=== PATIENT | female | born 1960 | race Caucasian/White ===

== ENCOUNTER 2021-01-23 11:11 | Emergency (ER) | payer BC ==
[2021-01-23] MEDS ORDERED: Bacitracin Oint 1 GM U/D Packet TOP ONE (11:41)
--- NOTE | 2021-01-23 12:10 | EDM.PDOC ---
ED HPI GENERAL MEDICAL PROBLEM - General Chief Complaint: Laceration Stated Complaint: L POINTER FINGER CUT Time Seen by Provider: 01/23/21 11:35 Source of Information: Reports: Patient History Limitations: Reports: No Limitations - History of Present Illness INITIAL COMMENTS - FREE TEXT/NARRATIVE: 60-year-old female was cutting a bigger frozen hamburger when she accidentally c ut the top of the index finger on the left hand. She has a tangential laceration across the dorsal aspect of the proximal finger. No limitations of motion. Onset: Sudden Duration: Hour(s): (Within the last hour) Location: Reports: Upper Extremity, Left Associated Symptoms: Reports: No Other Symptoms - Related Data Allergies Allergy/AdvReac Type Severity Reaction Status Date / Time No Known Allergies Allergy Verified 01/23/21 11:59 Social & Family History - Tobacco Use Tobacco Use Status *Q: Never Tobacco User Second Hand Smoke Exposure: No ED ROS GENERAL - Review of Systems Review Of Systems: See Below Constitutional: Denies: Fever, Chills Respiratory: Denies: Shortness of Breath Cardiovascular: Denies: Chest Pain GI/Abdominal: Denies: Abdominal Pain, Nausea, Vomiting Neurological: Denies: Paresthesia ED EXAM, SKIN/RASH Exam: See Below Exam Limited By: No Limitations General Appearance: Alert, No Apparent Distress, Anxious Respiratory/Chest: No Respiratory Distress Extremities: Other (Exam is otherwise limited the left hand. Patient is a 3 cm diagonal laceration over the dorsal aspect of the left index finger distal to the MP joint. The tendon is visualized but is intact, she has no deficit distally) Neurological: Alert, Oriented Course - Vital Signs Last Recorded V/S: Last Vital Signs Temp 98.2 F 01/23/21 11:21 Pulse 94 01/23/21 11:21 Resp 16 01/23/21 11:21 BP 117/69 01/23/21 11:21 Pulse Ox 97 01/23/21 11:21 - Orders/Labs/Meds Meds: Medications Discontinued Medications Generic Name Dose Route Start Last Admin Trade Name Freq PRN Reason Stop Dose Admin Bacitracin 1 dose 01/23/21 11:41 01/23/21 12:15 Bacitracin Oint 1 Gm U/D Packet TOP 01/23/21 11:42 1 dose ONETIME ONE Administration Lidocaine HCl 5 ml 01/23/21 11:41 Lidocaine 1% 5 Ml Sdv INJECT 01/23/21 11:42 ONETIME ONE - Re-Assessments/Exams Free Text/Narrative Re-Assessment/Exam: 01/23/21 12:08 The wound was anesthetized with 1% lidocaine, cleansed thoroughly with saline and explored, no foreign body or significant deep structures were injured. Five 4-0 Ethilon sutures were used to close the wound. Topical bacitracin and a dressing was applied, stitches can be removed in 9 days. She can recheck sooner if concerns of infection or not healing satisfactorily. Departure - Departure Time of Disposition: 12:23 Disposition: Home, Self-Care 01 Clinical Impression: Laceration of left index finger Qualifiers: Encounter type: initial encounter Damage to nail status: without damage Foreign body presence: without foreign body Qualified Code(s): S61.211A - Laceration w ithout foreign body of left index finger without damage to nail, initial encounter - Discharge Information Instructions: Laceration Care, Adult Referrals: Torrie Howell PA-C [Primary Care Provider] - Forms: ED Department Discharge Care Plan Goals: Keep wound covered and clean while healing. Continue activity as tolerated and recheck at any time if concerns of infection or not healing satisfactorily. Sutures can be removed on Monday the . Sepsis Event Note (ED) - Focused Exam Vital Signs: Vital Signs Temp Pulse Resp BP Pulse Ox 01/23/21 11:21 98.2 F 94 16 117/69 97
== END 2021-01-23 12:22 | disposition home or self-care (01) ==
LOC: JP.ED 11:11
DX: S61.211A Laceration without foreign body of left index finger without damage to nail, initial encounter (principal); W26.9XXA Contact with unspecified sharp object(s), initial encounter
CPT/HCPCS: 12002; 99282-25

== ENCOUNTER 2024-07-29 07:36 | Day surgery (SDC) | payer BC ==
[~2024-07-29 07:36] MED LIST: Midazolam 1 MG/ML 2 ML SDV ONE; Propofol 200 MG/20 ML SDV ONE; fentaNYL 50 MCG/ML SDV ONE
[2024-07-29] MEDS: Lactated Ringers 1,000 ML IV SCH (08:20)
[2024-07-29] MEDS ORDERED: Propofol 200 MG/20 ML SDV ONE (08:54)
== END 2024-07-29 10:09 | disposition home or self-care (01) ==
LOC: JP.SDS 07:36
PROVIDERS: ATTEND Surgery
DX: Z12.11 Encounter for screening for malignant neoplasm of colon (principal); D12.5 Benign neoplasm of sigmoid colon; K63.5 Polyp of colon; Z87.891 Personal history of nicotine dependence
CPT/HCPCS: 00811; 45380; 45385; 88305; J2250; J2704; J3010; J7120